=== PATIENT | male | born 1985 | race Caucasian/White ===

== ENCOUNTER 2025-01-16 18:04 | Emergency (ER) | payer MEDICAID, OTHER ==
[~2025-01-16] VITALS: Ht 165.1 cm; Wt 89.1 kg
[2025-01-16 18:11] VITALS: TEMP 97.9
[2025-01-16] MEDS ORDERED: ACET-2080 PO (21:16)
[2025-01-16] MEDS ORDERED: IBUP-1554 PO (21:16)
[2025-01-16] MEDS: IBUPROFEN 600 MG TABLET PO ONE (21:20)
[2025-01-16] MEDS: ACETAMINOPHEN/CODEINE 300-30 MG TABLET PO ONE (21:20)
[2025-01-16 21:48] VITALS: BP 115/80; PULSE 81; RESP 18; O2SAT 96
== END 2025-01-16 21:49 | disposition home or self-care (01) ==
LOC: EMS 18:09
DX: S43.101A Unspecified dislocation of right acromioclavicular joint, initial encounter (principal); S20.229A Contusion of unspecified back wall of thorax, initial encounter; S00.83XA Contusion of other part of head, initial encounter; S40.211A Abrasion of right shoulder, initial encounter; W19.XXXA Unspecified fall, initial encounter; Y93.89 Activity, other specified; Y92.89 Other specified places as the place of occurrence of the external cause; Y99.8 Other external cause status; Z79.899 Other long term (current) drug therapy
CPT/HCPCS: 29240; 99283

== ENCOUNTER 2025-02-18 20:47 | Emergency (ER) | payer OTHER ==
[~2025-02-18] VITALS: Ht 165.1 cm; Wt 90.9 kg
[~2025-02-18 20:47] MED LIST: ACET-2080 PO; IBUP-1554 PO
[2025-02-18 21:01] VITALS: BP 101/60; PULSE 72; RESP 14; TEMP 98.9; O2SAT 99
[2025-02-18 23:22] LABS: PLATELET COUNT (AUTO) 266 K/uL (150-450); RED BLOOD CELL COUNT(AUTO) 4.80 MIL/uL (4.50-5.90); RED CELL DISTRIBUTION WIDTH 14.8 % (11.5-14.5); WHITE BLOOD COUNT (AUTO) 7.6 K/uL (4.5-11.0)
[2025-02-18 23:28] LABS: SODIUM SERUM 136 mmol/L (136-145)
[2025-02-18 23:49] LABS: CALCIUM, TOTAL 8.6 mg/dL (8.8-10.5); CREATININE 0.92 mg/dL (0.60-1.30); GLOMERULAR FILTR. RATE CALC > 60 mL/min (>60); GLUCOSE,RANDOM 118 mg/dL (70-110); UREA NITROGEN, BLOOD 8 mg/dL (7-18)
[2025-02-18] MEDS: SODIUM CHLORIDE 0.9% 1,000 ML IV ONE (23:50)
[2025-02-19] MEDS ORDERED: CEPH-558 PO (05:21)
[2025-02-19] MEDS: BACITRACIN 0.9 GM PACKET OINTMENT TP ONE (05:52)
== END 2025-02-19 06:01 | disposition home or self-care (01) ==
LOC: EMS 20:57
DX: S01.511A Laceration without foreign body of lip, initial encounter (principal); F10.129 Alcohol abuse with intoxication, unspecified; Z65.3 Problems related to other legal circumstances; Z79.899 Other long term (current) drug therapy; Y04.0XXA Assault by unarmed brawl or fight, initial encounter; Y93.89 Activity, other specified; Y92.89 Other specified places as the place of occurrence of the external cause; Y99.8 Other external cause status; Y90.6 Blood alcohol level of 120-199 mg/100 ml
CPT/HCPCS: 99284; 70450; 96360; 96361; 80048; 85025; 36415; 70486; 72125; G0480; J7030